=== PATIENT | male | born 1955 | race Caucasian/White ===

== ENCOUNTER → 2017-02-14 | Outpatient (CLI) | payer BC ==
--- NOTE | 2017-02-14 17:43 | HKNOTE ---
DATE OF SERVICE: 02/14/2017 MAIN COMPLAINT: Pain in the right knee. The patient has severe degenerative osteoarthritis of his right knee. The last cortisone injection did not give him very much relief of his pain. He comes i n to discuss viscosupplementation injection. He also wants to discuss total knee replacement. His most recent x-rays of his right knee were reviewed. These show complete [id number] degenerati ve osteoarthritis of the medial compartment of the patellofemoral joint. There is marked varus alig nment of the knee. PHYSICAL EXAMINATION: The knee shows flexion limited to 105 degrees, 6+ crepitus in the knee. MANAGEMENT: The patient is advised that the viscosupplementation is not very effective, and at the nguyen that they are normally charging for the medication, I do not recommend that he have it. We spent some time discussing total knee replacement and what is involved in the procedure. The pat ient indicates that he may opt to have his surgery in about 3 months' time or so. Dictated By: ANUPAM SCHNEIDER/YESIKA Conf#: [id number] DID#: [id number]
== END | disposition home or self-care (01) ==
LOC: HKI 15:27
DX: M25.561 Pain in right knee (principal); M17.11 Unilateral primary osteoarthritis, right knee
CPT/HCPCS: G0463